=== PATIENT | female | born 2000 | race African-American/Black ===

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

== ENCOUNTER 2024-03-01 20:29 | Emergency (ER) | payer MEDICAID | END 2024-03-01 22:16 | disposition home or self-care (01) | LOC: ERS 20:29 | DX: O9A.211 Injury, poisoning and certain other consequences of external causes complicating pregnancy, first trimester (principal); Z3A.01 Less than 8 weeks gestation of pregnancy | CPT/HCPCS: 99282 ==

== ENCOUNTER 2024-03-30 22:31 | Emergency (ER) | payer MEDICAID, OTHER ==
[2024-03-30 23:00] LABS: #Basophils 0.03 10x3/uL (0.0-0.2); %Basophils 0.3 % (0.0-1.0); %Eosinophils 0.7 % (0.0-10.0); %Monocytes 8.4 % (0.0-10.0); %Neutrophils 66.3 % (42.0-75.0); Hematocrit 33.2 % (36.0-47.0); Hemoglobin 11.2 g/dL (12.0-16.0); Mean Corpuscular HGB CONC 33.7 g/dL (32.0-36.0); Mean Corpuscular Hemoglobin 30.5 pg (27.0-31.0); Mean Corpuscular Volume 90.5 fL (78.0-98.0); Mean Platelet Volume 10.8 fL (7.4-10.4); Platelet Count 174 10x3/uL (130-400); RBC Distribution Width 12.6 % (11.5-14.5); Red Blood Cell (RBC) Count 3.67 mill/uL (4.20-5.40)
[2024-03-30 23:01] LABS: Bilirubin Negative (Negative); Blood, Urine Large (Negative); Glucose, Urine (Dipstick) Negative (Negative); Ketone, Urine Trace mg/dL (Negative); Leukocyte Negative (Negative); Nitrite Negative (Negative); Protein, Urine (Dipstick) 30 mg/dL (Neg-Trace); Specific Gravity, Urine 1.015 (1.005-1.030); pH, Urine 8.5 (5.0-9.0)
[2024-03-30 23:02] LABS: Bacteria/HPF None Seen HPF (None Seen); CAUTI Indications for Culture Pelvic or flank pain; Clarity Hazy (Clear); RBC/HPF Greater than 50 HPF (0-3)
[2024-03-30 23:04] LABS: Urine Culture Reflex No No
[2024-03-30 23:19] LABS: ALT (SGPT) 5 U/L (8-55); AST (SGOT) 11 U/L (5-34); Albumin 3.7 g/dL (3.5-5.0); Alkaline Phosphatase 34 U/L (40-110); Anion Gap 11 mmol/L (10-20); BUN (Urea Nitrogen) 7 mg/dL (7.0-18.7); Bilirubin, Total 0.4 mg/dL (0.2-1.2); Calc. Creatinine Clearance 0 mL/min (70-130); Calcium 8.5 mg/dL (7.8-10.44); Carbon Dioxide 19 mmol/L (22-29); Chloride 110 mmol/L (98-107); Estimated GFR 128; Globulin 2.5 g/dL (2.4-3.5); Glucose 85 mg/dL (70-105); Potassium 3.6 mmol/L (3.5-5.1); Protein, Total 6.2 g/dL (6.0-8.3); Sodium 136 mmol/L (136-145)
== END 2024-03-31 00:37 | disposition home or self-care (01) ==
LOC: ERS 22:31
DX: O44.31 Partial placenta previa with hemorrhage, first trimester (principal); Z3A.11 11 weeks gestation of pregnancy
CPT/HCPCS: 36415; 76815; 80053; 81001; 84702; 85025; 86900; 86901

== ENCOUNTER 2024-12-09 22:28 | Emergency (ER) | payer OTHER ==
[2024-12-10] MEDS ORDERED: Ketorolac Tromethamine 30 MG (1 mL) VIAL ONE (01:33)
[2024-12-10] MEDS ORDERED: cefTRIAXone (ROCEPHIN) 1 GM VIAL ONE (01:33)
[2024-12-10] MEDS ORDERED: Lidocaine 1% PF 5 ML VIAL ONE (01:33)
== END 2024-12-10 02:17 | disposition home or self-care (01) ==
LOC: ERS 22:28
DX: N39.0 Urinary tract infection, site not specified (principal)
CPT/HCPCS: 96372; 99282; J0696; J1885

== ENCOUNTER 2024-12-10 14:23 | Emergency (ER) | payer OTHER | END 2024-12-10 15:16 | disposition home or self-care (01) | LOC: ERS 14:23 | DX: N76.6 Ulceration of vulva (principal); N39.0 Urinary tract infection, site not specified | CPT/HCPCS: 87252; 96372; 99282; 99283; J0696; J1885 ==